=== PATIENT | female | born 1960 | race African-American/Black ===

== ENCOUNTER 2018-05-09 06:47 | Day surgery (SDC) | payer OTHER ==
[~2018-05-09] VITALS: Ht 167.6 cm; Wt 134.3 kg
[2018-05-09] MEDS ORDERED: INSU100I7 SQ (07:55)
[2018-05-09] MEDS ORDERED: ASPI81CT89 PO (07:55)
[2018-05-09] MEDS ORDERED: CARV25TA PO (07:55)
[2018-05-09] MEDS ORDERED: METF1000 PO (07:55)
[2018-05-09] MEDS ORDERED: [UNRECOGNIZED DRUG - CODE] PO (07:55)
[2018-05-09] MEDS ORDERED: AMLO10TA PO (07:55)
[2018-05-09] MEDS ORDERED: LIDOCAINE 2% 100 MG/5 ML UJET TP ONE (09:39)
[2018-05-09] MEDS ORDERED: MIDAZOLAM 2 MG/2 ML VIAL ONE (09:39)
[2018-05-09] MEDS: fentaNYL 0.05 MG/ML VIAL ONE ×2 (10:55→11:17)
== END 2018-05-09 12:40 | disposition home or self-care (01) ==
LOC: MDS 06:47 → MMU 06:56 → MDS 12:40
PROVIDERS: ATTEND Internal Medicine Gastroenterology
DX: K64.8 Other hemorrhoids (principal); K57.30 Diverticulosis of large intestine without perforation or abscess without bleeding; K31.9 Disease of stomach and duodenum, unspecified; I10 Essential (primary) hypertension; E11.9 Type 2 diabetes mellitus without complications; F32.9 Major depressive disorder, single episode, unspecified; G47.30 Sleep apnea, unspecified; M19.90 Unspecified osteoarthritis, unspecified site; E66.01 Morbid (severe) obesity due to excess calories; Z68.42 Body mass index [BMI] 45.0-49.9, adult; Z98.890 Other specified postprocedural states; Z79.2 Long term (current) use of antibiotics; Z79.4 Long term (current) use of insulin; Z79.899 Other long term (current) drug therapy; Z88.1 Allergy status to other antibiotic agents; Z88.5 Allergy status to narcotic agent; Z88.8 Allergy status to other drugs, medicaments and biological substances; Z88.0 Allergy status to penicillin
CPT/HCPCS: 36415; 43239; 45378; 82948; 86677; J2250; J3010; J7030